=== PATIENT | female | born 1955 ===

== ENCOUNTER 2018-06-27 11:37 | Day surgery (SDC) | payer OTHER ==
[2018-06-27] MEDS ORDERED: Lactated Ringer's 500 ML IV ONE (12:41)
[2018-06-27] MEDS ORDERED: Propofol 10 mg/ml Inj (20 ML) ONE (13:38)
[2018-06-27 14:18] VITALS: TEMP 97
[2018-06-27 14:38] VITALS: BP 115/65; PULSE 86; RESP 18; O2SAT 100
== END 2018-06-27 14:51 | disposition home or self-care (01) ==
LOC: H.ENDO 11:37 → EDBD 11:37 → H.ENDO 14:51
PROVIDERS: ATTEND Internal Medicine Gastroenterology
DX: K44.9 Diaphragmatic hernia without obstruction or gangrene (principal); K31.89 Other diseases of stomach and duodenum; D50.9 Iron deficiency anemia, unspecified; R10.13 Epigastric pain
CPT/HCPCS: 43239; 82948; 88305; J2001; J2704; J7120

== ENCOUNTER 2018-07-11 09:56 | Day surgery (SDC) | payer OTHER ==
[2018-07-11] MEDS: Lactated Ringer's 500 ML IV ONE (10:47)
[2018-07-11] MEDS ORDERED: Propofol 10 mg/ml Inj (20 ML) ONE (12:29)
[2018-07-11 13:08] VITALS: BP 114/66; PULSE 66; RESP 21; TEMP 97.5; O2SAT 100
== END 2018-07-11 13:40 | disposition home or self-care (01) ==
LOC: H.ENDO 09:56
PROVIDERS: ATTEND Internal Medicine Gastroenterology
DX: Z12.11 Encounter for screening for malignant neoplasm of colon (principal); E11.9 Type 2 diabetes mellitus without complications; I10 Essential (primary) hypertension; D12.7 Benign neoplasm of rectosigmoid junction; D12.0 Benign neoplasm of cecum; K64.0 First degree hemorrhoids
CPT/HCPCS: 45380; 82948; 88305; J2001; J2704; J7120